=== PATIENT | male | born 1970 | race Caucasian/White ===

== ENCOUNTER 2019-12-21 11:48 | Emergency (ER) | payer OTHER, MEDICARE, SELFPAY ==
--- NOTE | 2019-12-21 11:53 | ED.EYEPROB ---
HPI - Eye Problem General Chief complaint: Eye Problems Stated complaint: R/eye FB Time Seen by Provider: 12/21/19 11:51 Source: patient Mode of arrival: ambulatory Limitations: no limitations History of Present Illness HPI Narrative: 48 y/o male. PMH includes: See Chart. Presents to ED today with acute complaints of redness, light sensitivity, excessive lacrimation, and foreign body sensation to RT eye for past 4 days. He reports to have been drilling and installing can lights in his parents house , when debris fell into his eye . Client notes worsening irritation and manifestations. No visual changes or loss. No additional acute c/o upon PE. chief complaint: eye redness and foreign body Related Data Home Medications Medication Instructions Recorded Confirmed ampicillin 500 mg PO DAILY 01/10/19 12/21/19 atorvastatin 20 mg DAILY 12/21/19 12/21/19 Allergies Allergy/AdvReac Type Severity Reaction Status Date / Time No Known Allergies Allergy Mild Verified 01/10/19 07:51 Review of Systems Review of Systems: Narrative: CONSTITUTIONAL: Denies fever, chills, sweats. EYES: Denies visual changes. Positive redness, discharge, foreign body sensation RT eye. ENT: Denies rhinorrhea, congestion, sore throat, otalgia. CARDIOVASCULAR: Denies chest pain, palpitations, edema. RESPIRATORY: Denies dyspnea, wheezing, cough GASTROINTESTINAL: Denies abdominal pain, nausea, vomiting, diarrhea. GENITOURINARY: Denies dysuria, hematuria, abnormal discharge SKIN: Denies rash or itching. MUSCULOSKELETAL: Denies acute back pain, joint pain, or myalgia. NEUROLOGIC: Denies numbness, or focal weakness. PSYCHIATRIC: Denies anxiety or depression. [facility] Past Medical History Medical History Arthritis of both knees Rosacea Surgical History Surgical History History of arthroscopy of both knees History of carpal tunnel release of both wrists Social History Social History Smoking status: Never smoker Gender identity (if verbalized by the patient): Male Exam Narrative: Exam Narrative: GENERAL: This is a well-nourished, well-developed patient, in no apparent distress. HEAD: normocephalic, atraumatic. EYES: PERRL. With conjunctival erythema RT. Subconjunctival hemorrhage and small metallic FB noted to sclera. No retinal or pupil complication. Vision is grossly intact. EARS: External ears normal, auditory canals clear and without drainage, TMs normal without perforation. Hearing grossly intact. NOSE: External nose normal with no obvious nasal discharge, nares without redness, no rhinorrhea. THROAT: Mucous membranes moist, posterior pharynx clear. NECK: Neck supple, non-tender without lymphadenopathy, masses or thyromegaly. CARDIOVASCULAR: Regular rate and rhythm without murmurs, gallops, or rubs. RESPIRATORY: Clear to auscultation. Breath sounds equal bilaterally. No wheezes, rales, or rhonchi. GASTROINTESTINAL: Abdomen soft, non-tender, nondistended. Bowel sounds are active. No hepato-splenomegaly, or palpable masses. No guarding. SKIN: warm, intact with no suspicious lesions or rash, good texture and turgor. NEURO: awake, alert, and oriented to person, place and time. There were no obvious focal neurologic abnormalities. Steady gait EXTREMITIES: Normal range of motion. No edema. No calf tenderness. Negative Homans sign bilaterally. BACK: Nontender without deformity or crepitance. No flank tenderness. [place] Coma Scale Eye Opening: Spontaneous 4 [place] Coma Scale Motor: Obeys Commands 6 Po Coma Scale Verbal: Oriented 5 Const: General: no acute distress Course Course Emergency Course: Topical anesthetic was instilled with good anesthesia using 1gtt of opth anesthetic agent (tetracaine). Fluorescein stain of the R eye was performed with uptake of dye noted in
[2019-12-21 12:03] VITALS: PULSE 74; RESP 20; TEMP 36.4; O2SAT 100
[2019-12-21 12:07] VITALS: PULSE 74; RESP 20; TEMP 36.4; O2SAT 100
== END 2019-12-21 12:31 | disposition home or self-care (01) ==
PROVIDERS: Emergency Provider Nurse Practitioner Adult Health
DX: T15.11XA Foreign body in conjunctival sac, right eye, initial encounter (principal); X58.XXXA Exposure to other specified factors, initial encounter; M17.0 Bilateral primary osteoarthritis of knee
CPT/HCPCS: 99213; G0463

== ENCOUNTER 2022-07-07 13:01 | Emergency (ER) | payer OTHER, MEDICARE, SELFPAY ==
[2022-07-07 13:18] VITALS: BP 133/82; PULSE 72; RESP 18; TEMP 36.6; O2SAT 100
[2022-07-07] MEDS: DACRIOSE EYE IRRIGATION 118 ML BOTTLE 10 ML EACH EYE (13:23)
[2022-07-07] MEDS: FLUORESCEIN SOD 1 MG/STRIP EACH EYE (13:23)
[2022-07-07] MEDS: TETRACAINE HCL 0.5% OPHTH SOLN 4 ML BTL 1 DROP EACH EYE (13:23)
--- NOTE | 2022-07-07 13:29 | ED.EYEPROB ---
HPI - Eye Problem General Chief complaint: Eye Problems Stated complaint: Bilateral Eye Irritation Time Seen by Provider: 07/07/22 13:30 Source: patient, RN notes reviewed and old records reviewed Mode of arrival: ambulatory Limitations: no limitations History of Present Illness HPI Narrative: 51 year old male who presents to [facility] care with complaints of feeling like something is in his left eye after mowing today 2 hours prior to arrival. Patient admits that he was not wearing safety glasses while he was mowing like he usually does states was in a hurry. Patient reports no visual changes or any blurring of vision, denies any sharp pain to his left eye, reports increased blinking and watering from left eye. visual acuity 20/25 both eyes without use of corrective lenses. MD chief complaint: foreign body (sensation left eye) Onset (ago): hour(s) (2 hours prior to arrival) Onset description: gradual Location: left eye Eye Symptoms: redness, foreign body sensation and other (left eye watering) Place: home Treatments Prior to Arrival: irrigated eye Related Data Home Medications Medication Instructions Recorded Confirmed atorvastatin 20 mg tablet 20 mg DAILY 12/21/19 07/07/22 Allergies Allergy/AdvReac Type Severity Reaction Status Date / Time No Known Allergies Allergy Mild Verified 07/07/22 13:20 Review of Systems Review of Systems: CONSTITUTIONAL: Denies fever, chills, or sweats. EYES: Denies visual changes. Reports redness, irritation, watery with foreign body sensation left eye. ENT: Denies rhinorrhea, congestion, sore throat, or otalgia. CARDIOVASCULAR: Denies chest pain, palpitations, or edema. RESPIRATORY: Denies cough or dyspnea. SKIN: Denies rash or itching. NEUROLOGIC: Denies headache All systems reviewed & are unremarkable except as noted in HPI and below PMFSH Past Medical History Medical History Arthritis of both knees Rosacea Surgical History Surgical History History of arthroscopy of both knees History of carpal tunnel release of both wrists Social History Social History Smoking status: Never smoker Gender identity (if verbalized by the patient): Male Comments At time of signature, agree with nursing past medical, surgical, social and family history. There is no relevant family history pertinent to the presenting complaint Exam Narrative: GENERAL: Well-appearing, well-nourished, and in no acute distress. HEAD: Normocephalic, atraumatic. EYES: PERRLA and EOMI. Upper and lower eyelids unremarkable. No periorbital cellulitis noted. Left Sclera red with eye watery no conjunctiva injection, foreign body sensation left eye,see procedure note ENT: Nares clear, no rhinorrhea or epistaxis. Mucous membranes moist. NECK: Supple. no lymphadenopathy CHEST: Clear to auscultation. No respiratory distress.SAO2 100% on room air HEART: Regular rate and rhythm. No murmur heard. Normal peripheral pulses. SKIN: Warm, dry, no rash. NEURO: No focal deficits. Alert and oriented x3. Course Course Emergency Course: Patient is aware of diagnosis, understands and agrees to treatment plan. Anticipatory guidance given. Patient agrees to follow-up as directed and is aware of reasons to seek care at the emergency department. Portions of this record may have been created with voice recognition software Level of Care: Express Care Visit Vital Signs Vital signs: Vital Signs Oxygen Delivery Room Air 07/07/22 13:15 Temperature 36.6 C 07/07/22 13:18 Pulse Rate 72 07/07/22 13:18 Respiratory Rate 18 07/07/22 13:18 Blood Pressure 133/82 07/07/22 13:18 Pulse Oximetry 100 07/07/22 13:18 Oxygen Delivery Room Air 07/07/22 13:18 reviewed Procedures FB Removal Eye Foreign Body #1: Foreign Body Removal Date: 0
== END 2022-07-07 13:55 | disposition home or self-care (01) ==
PROVIDERS: Emergency Provider Registered Nurse; PCP Internal Medicine
DX: S05.00XA Injury of conjunctiva and corneal abrasion without foreign body, unspecified eye, initial encounter (principal); X58.XXXA Exposure to other specified factors, initial encounter; M17.0 Bilateral primary osteoarthritis of knee
CPT/HCPCS: 99213; A9270; G0463